=== PATIENT | female | born 1950 | race Caucasian/White ===

== ENCOUNTER 2016-08-18 09:40 | Emergency (ER) | payer OTHER ==
[~2016-08-18] VITALS: Wt 78.0 kg
[~2016-08-18 09:40] MED LIST: ASPI-664 PO; CYCL-319 PO; DORZ10DR6 BOTH EYES; GLIM4TAB PO; INSU300I SQ; LATA2.5D2 BOTH EYES; LEVO175T38 PO; LIRA0.6P SQ; LOSA50TA6 PO; NAPR-260 PO; OMEP20CA16 PO; SIMV20TA PO
[2016-08-18] MEDS ORDERED: KETOROLAC 30 MG INJ IM STA (10:14)
[2016-08-18 10:36] LABS: ADD UMIC YES; URINE BILIRUBIN (Dip) NEGATIVE (NEGATIVE); URINE BLOOD (Dip) 3+ (NEGATIVE); URINE COLOR LT. YELLOW (YELLOW); URINE GLUCOSE (Dip) >=1000 % (NEGATIVE); URINE KETONES (Dip) TRACE (NEGATIVE); URINE LEUKOCYTE ESTERASE (Dip) 2+ (NEGATIVE); URINE NITRITE (Dip) POSITIVE (NEGATIVE); URINE TOTAL PROTEIN (Dip) 2+ (NEGATIVE); URINE UROBILINOGEN (Dip) 0.2 E.U./dL (0.1-1.0)
[2016-08-18 10:52] LABS: BACTERIA,URINE MANY; SQUAMOUS EPITHELIAL CELL,UR FEW; URINE RBCS >50 /HPF (0)
[2016-08-18] MEDS ORDERED: CEFTRIAXONE 1 GM INJ IM STA (10:56)
[2016-08-18] MEDS ORDERED: LIDOCAINE 1% (MDV) 20 ML INJ SC STA (11:05)
[2016-08-18] MEDS ORDERED: CEFTRIAXONE 1 GM/50 ML (PMX) 50 ML IVPB STA (11:10)
[2016-08-18] MEDS ORDERED: SOD CHLORIDE 0.9% 1,000 ML IV STA (11:10)
[2016-08-18 11:32] LABS: ADD SCAN DIFF NO
[2016-08-18 11:44] LABS: BASOPHILS % 0.3 % (0.0-2.0); EOSINOPHILS # 0.1 10^3/ul (0.0-0.5); EOSINOPHILS % 0.5 % (0.0-7.0); HEMATOCRIT 35.1 % (37.0-47.0); LYMPHOCYTES # 1.9 10^3/ul (0.8-2.9); LYMPHOCYTES % 12.6 % (15.0-51.0); MEAN CORPUSCULAR HGB CONC 34.2 g/dl (32.0-37.0); MEAN PLATELET VOLUME 9.5 fl (7.4-10.4); MONOCYTES % 6.9 % (0.0-11.0); PLATELET COUNT 289 10^3/UL (140-415); RED BLOOD COUNT 4.28 10^6/ul (4.20-5.40); RED CELL DISTRIBUTION WIDTH 13.2 % (11.5-14.5); WHITE BLOOD COUNT 15.1 10^3/ul (4.8-10.8)
[2016-08-18 11:46] LABS: ALBUMIN 3.9 g/dl (3.3-4.9)
[2016-08-18 11:47] LABS: POTASSIUM 4.5 mmol/L (3.5-5.1)
[2016-08-18 11:49] LABS: ALBUMIN/GLOBULIN RATIO 1.25; BILIRUBIN,INDIRECT 0.4 mg/dl (0-1.1); BILIRUBIN,TOTAL 0.4 mg/dl (0.2-1.3); CREATININE 0.79 mg/dl (0.44-1.00)
[2016-08-18 11:50] LABS: CALCIUM 8.5 mg/dl (8.4-10.2)
[2016-08-18] MEDS ORDERED: PHEN-538 PO (11:58)
[2016-08-18] MEDS ORDERED: CEPH-443 PO (11:58)
[2016-08-18 12:32] VITALS: BP 129/76; PULSE 80; RESP 20; TEMP 98.4
--- NOTE | 2016-08-18 13:59 | ERD ---
ER Documentation Chief Complaint Date/Time DATE: 08/18/16 TIME: 13:56 Chief Complaint low back pain and dysuria for the past few days. burning on urination . HPI This is a 66-year-old female with a history of diabetes type 2 presenting to the emergency department complaining of painful urination and cramping suprapubic pain for the past 3 days. Patient states that she feels like she has body aches. She denies any nausea, vomiting, diarrhea. Denies any chest pain or shortness of breath. Patient states that she has had high blood sugar peer ROS All systems reviewed and are negative except as per history of present illness. Medications Home Meds Active Scripts Phenazopyridine Hcl* (Pyridium*) 200 Mg Tab, 200 MG PO TID Y for URINARY PAIN, # 10 TAB Prov:ANNA VALVERDE PA-C 08/18/16 Cephalexin* (Keflex*) 500 Mg Capsule, 500 MG PO QID for 12 Days, CAP Prov:ANNA VALVERDE PA-C 08/18/16 Naproxen* (Naprosyn*) 500 Mg Tablet, 500 MG PO BID Y for PAIN AND/OR INFLAMMATION, #30 TAB Prov:ZEKE WORLEY 12/05/15 Cyclobenzaprine Hcl* (Cyclobenzaprine Hcl*) 10 Mg Tablet, 10 MG PO TID, #15 TAB Prov:ZEKE WORLEY 12/05/15 Reported Medications Latanoprost (Latanoprost) 2.5 Ml Drops, 1 DROP BOTH EYES QHS, #1 BOTTLE 12/05/15 Dorzolamide/Timolol* (Dorzolamide/Timolol*) 10 Ml Drops, 1 DROP BOTH EYES BID, # 1 EA 12/05/15 Insulin Glargine,Hum.rec.anlog (Toutj Solostar) 300 Unit/1 Ml Insuln.pen, 0 SQ BID SLIDING SCALE 12/05/15 Liraglutide (Victoza 2-Scot) 0.6 Mg/0.1 Ml Pen.injctr, 1.2 MG SQ DAILY, SYR AT 3PM 12/05/15 Simvastatin* (Zocor*) 20 Mg Tablet, 20 MG PO QHS, #30 TAB 12/05/15 Aspirin (Low Dose Aspirin) 81 Mg Tablet.dr, 81 MG PO DAILY, #30 TAB 12/05/15 Omeprazole* (Omeprazole*) 20 Mg Capsule.dr, 20 MG PO DAILY, #30 CAP 12/05/15 Levothyroxine Sodium* (Levoxyl*) 175 Mcg Tablet, 175 MCG PO BEFORE BREAKFAST, # 30 TAB 12/05/15 Glimepiride* (Glimepiride*) 4 Mg Tablet, 4 MG PO WITH BREAKFAST DINNE, TAB 12/05/15 Losartan Potassium* (Losartan Potassium*) 50 Mg Tablet, 50 MG PO DAILY, TAB 12/05/15 Allergies Allergies: Coded Allergies: No Known Allergy (Unverified , 08/18/16) PMhx/Soc History of Surgery: Yes (BILAT EYE CATARACT SX, THYROID SX, TAHBSO ) Hx Cardiac Disorders: Yes (HTN, HYPERLIPEDEMIA) Hx Miscellaneous Medical Probl: Yes (DM, HYPOTHYROIDISM) Hx Alcohol Use: No Hx Substance Use: No Hx Tobacco Use: No Smoking Status: Never smoker Physical Exam Vitals Vital Signs Date Time Temp Pulse Resp B/P Pulse Ox O2 Delivery O2 Flow Rate FiO2 08/18/16 12:32 98.4 80 20 129/76 98 08/18/16 09:42 98.9 88 21 133/75 98 Physical Exam General: well-developed/well-nourished, in no apparent distress, non-toxic appearing HENT: NC/AT Eyes: Conjunctiva normal Neck: Supple Pulm: CTA bilaterally, normal breathing CV: Normal S1S2 GI: Soft, non-distended, normal bowel sounds, TTP on suprapubic region Back: No midline tenderness, no masses, No CVAT Ext: No clubbing, cyanosis, or edema Neuro: Alert and orientated Skin: intact, normal turgor Psych: Normal mood and mentation Result Diagram: 08/18/16 1115 08/18/16 1115 Results 24 hrs Laboratory Tests Test 08/18/16 10:25 08/18/16 11:15 Urine Color LT. YELLOW Urine Clarity SLIGHTLY CLOUDY Urine pH 6.0 Urine Specific Clarence 1.015 Urine Ketones TRACE Urine Nitrite POSITIVE Urine Bilirubin NEGATIVE Urine Urobilinogen 0.2 E.U./dL Urine Leukocyte Esterase 2+ Urine Microscopic RBC >50/HPF Urine Microscopic WBC >50/HPF Urine Squamous Epithelial Cells FEW Urine Bacteria MANY Urine Hemoglobin 3+ Urine Glucose >=1000% Urine Total Protein 2+ White Blood Count 15.110^3/ul Red Blood Count 4.2810^6/ul Hemoglobin 12.0g/dl Hematocrit 35.1% Mean Corpuscular Volume 82.0fl Mean Corpuscular Hemoglobin 28.0pg Mean Corpuscular Hemoglobin Concent 34.2g/dl Red Cell Distribution Width 13.2% Platelet Count 63441^3/UL Mean Platelet Volume 9.5fl Neutrophils % 79.0% Lymphocytes % 12.6% Monocytes % 6.9% Eosinophils % 0.5% Basophils % 0.3% Nucleated Red Blood Cells % 0.0/100WBC Neutrophils # 12.010^3/ul Lymphocytes # 1.910^3/ul Monocytes # 1.010^3/ul Eosinophils # 0.110^3/ul Basophils # 0.010^3/ul Nucleated Red Blood Cells # 0.010^3/ul Sodium Level 127mmol/L Potassium Level 4.5mmol/L Chloride Level 94mmol/L Carbon Dioxide Level 26mmol/L Anion Gap 12 Blood Urea Nitrogen 11mg/dl Creatinine 0.79mg/dl Glucose Level 298mg/dl Calcium Level 8.5mg/dl Total Bilirubin 0.4mg/dl Direct Bilirubin 0.00mg/dl Indirect Bilirubin 0.4mg/dl Aspartate Amino Transf (AST/SGOT) 21IU/L Alanine Aminotransferase (ALT/SGPT) 38IU/L Alkaline Phosphatase 84IU/L Total Protein 7.0g/dl Albumin 3.9g/dl Globulin 3.10g/dl Albumin/Globulin Ratio 1.25 Lipase 68U/L Current Medications Medications (Trade) Dose Ordered Sig/Rachel Route PRN Reason Start Time Stop Time Status Last Admin Dose Admin Ketorolac Tromethamine (Toradol) 30 mg ONCE STAT IM 08/18/16 10:14 08/18/16 10:18 DC 08/18/16 10:27 Ceftriaxone Sodium (Rocephin) 1 gm ONCE STAT IM 08/18/16 10:56 08/18/16 10:57 DC Lidocaine 20 ml 20 ml ONCE STAT SC 08/18/16 11:05 08/18/16 11:07 DC Sodium Chloride 1,000 ml @ 1,000 mls/hr Q1H STAT IV 08/18/16 11:10 08/18/16 12:09 DC 08/18/16 11:26 Ceftriaxone Sodium (Rocephin) 50 ml @ 100 mls/hr ONCE STAT IVPB 08/18/16 11:10 08/18/16 11:39 DC 08/18/16 11:27 Procedures/MDM This is a 66-year-old female with a history of diabetes type 2 presenting to the emergency department complaining of symptoms most consistent with a urinary tract infection. I have a low suspicion for nephrolithiasis, pyelonephritis, or a complicated urinary tract infection that requires admission. A urinalysis was done in the ED and as she was positive for urinary tract infection with hemoglobin. Urine culture was sent out. IV access established, Lab work was drawn. CBC did not show any evidence of significant leukocytosis or anemia. CMP did not show any evidence of renal, liver, or electrolyte abnormalities. Glucose level was 298, I have a low suspicion for DKA or hyperosmolar state lipase was normal. UA did not show any evidence of hemoglobin or urinary tract infection. Patient was given 1 g of ceftriaxone in the ED and given a prescription for Keflex for outpatient. I discussed with patient to follow-up with her primary care physician tomorrow and discussion of her hyperglycemia. I discussed the patient to return to the emergency department for any worsening sinus symptoms. Patient is hematuria stable, afebrile and appears well for discharge. She understands and agrees with this plan Departure Diagnosis: Primary Impression: UTI (urinary tract infection) Condition: Stable Patient Instructions: Understanding Urinary Tract Infections (UTIs), Diabetic Hyperglycemia Additional Instructions: Visite a nina elsi mitchell para un EXAMEN.Regrese a estas instalaciones si no se mejora heydi esperbamos o heydi le dijimos. [place] toda la medicina jono y heydi se le indic. Regrese a estas instalaciones si no se mejora heydi esperbamos o heydi le dijimos. ANNA VALVERDE PA-C Aug 18, 2016 13:59
== END 2016-08-18 12:34 | disposition home or self-care (01) ==
LOC: FTE 09:40
DX: N39.0 Urinary tract infection, site not specified (principal); E11.9 Type 2 diabetes mellitus without complications; I10 Essential (primary) hypertension; E03.9 Hypothyroidism, unspecified; Z79.82 Long term (current) use of aspirin
CPT/HCPCS: 36415; 80053; 81001; 83690; 85025; 87086; 96372; 96374; J0696; J1885; J7030; Z7502; 81003

== ENCOUNTER 2017-04-09 08:52 | Emergency (ER) | payer OTHER ==
[~2017-04-09] VITALS: Ht 157.5 cm; Wt 77.4 kg
[~2017-04-09 08:52] MED LIST changes: +CEPH-443 PO; +PHEN-538 PO
[2017-04-09 08:53] VITALS: Ht 157.5 cm; Wt 77.4 kg
[2017-04-09] MEDS ORDERED: KETOROLAC 30 MG INJ IM STA (09:10)
--- NOTE | 2017-04-09 09:21 | RADRPT ---
PROCEDURE: XR Chest. CLINICAL INDICATION: Cough TECHNIQUE: Single frontal view of the chest was obtained COMPARISON: 12/05/2015 FINDINGS: The heart does not appear to be enlarged. Tortuosity of the thoracic aorta again seen. Hypoinflation lungs and bibasilar atelectasis. There is minimal prominence of the lung interstitium likely minimal chronic changes. Small calcified granuloma again seen in the right upper lung lobe. There is no pleural effusion or pneumothorax. IMPRESSION: Hypoinflation lungs and bibasilar atelectasis. RPTAT: HJES .Elmo Russell MD, MD Date Time Electronically viewed and signed by .Elmo Russell MD, MD on 04/09/2017 09:21 .S/
[2017-04-09] MEDS ORDERED: AZIT250T94 PO (09:41)
[2017-04-09] MEDS ORDERED: BENZ100C70 PO (09:41)
[2017-04-09] MEDS ORDERED: IBUP400T22 PO (09:42)
[2017-04-09] MEDS ORDERED: GUAI-637 PO (09:42)
--- NOTE | 2017-04-09 09:50 | ERD ---
ER Documentation Chief Complaint Chief Complaint Complains of cough, sorethroat x 3 days (JOHNNY THIBODEAUX PA-C) HPI Patient is a 66-year-old female with a past medical history of diabetes, hypertension, hyperlipidemia presents to the ED for concerns of cough, generalized body aches, sore throat and tactile fevers 3 days. Patient states last night she tried her 's Tessalon Perles. Patient denies taking any antipyretics. Patient did not check her temperature with thermometer. Patient states that her cough is dry. Patient also reports throat pain and states that she lost her voice secondary to persistent coughing. Patient denies any trismus , drooling or hyperextension of her neck. Patient denies any shortness of breath or chest pain. Patient states she does have coughing spells which does cause her to occasionally have chest wall pain. Patient denies any nausea, vomiting, abdominal pain or diarrhea. Patient states she did not receive the flu vaccination this year. Patient denies any recent travel. No sick contacts. (JOHNNY THIBODEAUX PA-C) ROS All systems reviewed and are negative except as per history of present illness. (JOHNNY THIBODEAUX PA-C) Medications Home Meds Active Scripts Guaifenesin* (Robitussin*) 100 Mg/5 Ml Syrup, 100 MG PO Q6 Y for COUGH, #1 BOT Prov:JOHNNY THIBODEAUX PA-C 04/09/17 Ibuprofen* (Motrin*) 400 Mg Tab, 400 MG PO Q6, #20 TAB Prov:JOHNNY THIBODEAUX PA-C 04/09/17 Benzonatate* (Tessalon Perle*) 100 Mg Capsule, 100 MG PO Q8H Y for COUGH, #20 CAP Prov:JOHNNY THIBODEAUX PA-C 04/09/17 Azithromycin* (Zithromax*) 250 Mg Tablet, 250 MG PO .EricPACK DIRECTED, #6 TAB TAKE 500 MG (2 TABS) THE FIRST DAY THEN 250 MG (1 TAB) DAYS 2-5 Prov:JOHNNY THIBODEAUX PA-C 04/09/17 Phenazopyridine Hcl* (Pyridium*) 200 Mg Tab, 200 MG PO TID Y for URINARY PAIN, # 10 TAB Prov:ANNA VALVERDE PA-C 08/18/16 Cephalexin* (Keflex*) 500 Mg Capsule, 500 MG PO QID for 12 Days, CAP Prov:ANNA VALVERDE PA-C 08/18/16 Naproxen* (Naprosyn*) 500 Mg Tablet, 500 MG PO BID Y for PAIN AND/OR INFLAMMATION, #30 TAB Prov:ZEKE WORLEY 12/05/15 Cyclobenzaprine Hcl* (Cyclobenzaprine Hcl*) 10 Mg Tablet, 10 MG PO TID, #15 TAB Prov:ZEKE WORLEY 12/05/15 Reported Medications Latanoprost (Latanoprost) 2.5 Ml Drops, 1 DROP BOTH EYES QHS, #1 BOTTLE 12/05/15 Dorzolamide/Timolol* (Dorzolamide/Timolol*) 10 Ml Drops, 1 DROP BOTH EYES BID, # 1 EA 12/05/15 Insulin Glargine,Hum.rec.anlog (Toujeo Solostar) 300 Unit/1 Ml Insuln.pen, 0 SQ BID SLIDING SCALE 12/05/15 Liraglutide (Victoza 2-Scot) 0.6 Mg/0.1 Ml Pen.injctr, 1.2 MG SQ DAILY, SYR AT 3PM 12/05/15 Simvastatin* (Zocor*) 20 Mg Tablet, 20 MG PO QHS, #30 TAB 12/05/15 Aspirin (Low Dose Aspirin) 81 Mg Tablet.dr, 81 MG PO DAILY, #30 TAB 12/05/15 Omeprazole* (Omeprazole*) 20 Mg Capsule.dr, 20 MG PO DAILY, #30 CAP 12/05/15 Levothyroxine Sodium* (Levoxyl*) 175 Mcg Tablet, 175 MCG PO BEFORE BREAKFAST, # 30 TAB 12/05/15 Glimepiride* (Glimepiride*) 4 Mg Tablet, 4 MG PO WITH BREAKFAST DINNE, TAB 12/05/15 Losartan Potassium* (Losartan Potassium*) 50 Mg Tablet, 50 MG PO DAILY, TAB 12/05/15 Allergies Allergies: Coded Allergies: No Known Allergy (Unverified , 08/18/16) PMhx/Soc History of Surgery: Yes (BILAT EYE CATARACT SX, THYROID SX, TAHBSO ) Hx Cardiac Disorders: Yes (HTN, HYPERLIPEDEMIA) Hx Miscellaneous Medical Probl: Yes (DM, HYPOTHYROIDISM) Hx Alcohol Use: No Hx Substance Use: No Hx Tobacco Use: No Smoking Status: Never smoker (JOHNNY THIBODEAUX PA-C) Physical Exam Vitals Vital Signs Date Time Temp Pulse Resp B/P Pulse Ox O2 Delivery O2 Flow Rate FiO2 04/09/17 08:53 98.5 85 20 153/86 96 (ANITHA ANGELES MD) Physical Exam GENERAL: Well-developed, well-nourished female. Appears in no acute distress. Hoarseness in voice noted. HEAD: Normocephalic, atraumatic. No deformities or ecchymosis. EYE: Pupils equal, round, and reactive to light. EOMs intact. No conjunctival erythema. No eye discharge. ENT: External ear without any masses or tenderness. Auditory canals clear bilaterally. TM visualized bilaterally, non-erythematous, non-bulging. Nasal mucosa pink with no discharge. Oropharynx is erythematous without any tonsillar erythema or exudates. No uvula deviation. No kissing tonsils. NECK: Supple. No meningismus. Normal ROM of the neck. LUNG: Clear to auscultation bilaterally. No rhonchi, wheezing, rales or coarse breath sounds. HEART: Regular rate and rhythm. No murmurs, rubs or gallops. BACK: No midline tenderness. EXTREMITIES: Equal pulses bilaterally. No peripheral clubbing, cyanosis or edema. No unilateral leg swelling. NEUROLOGIC: Alert and oriented to person, place and time. Moving all four extremities. 5/5 strength in all extremities. Normal speech. Steady gait. SKIN: Normal color. Warm and dry. No rashes or lesions. (JOHNNY THIBODEAUX PA-C) Results 24 hrs Current Medications Medications (Trade) Dose Ordered Sig/Rachel Route PRN Reason Start Time Stop Time Status Last Admin Dose Admin Ketorolac Tromethamine (Toradol) 30 mg ONCE STAT IM 04/09/17 09:10 04/09/17 09:11 DC 04/09/17 09:22 (ANITHA ANGELES MD) Procedures/MDM ED COURSE: The patient was stable throughout ED course. I kept the patient and/or family informed of laboratory and diagnostic imaging results throughout the ED course. DIAGNOSTIC IMAGING: Read by radiologist. DIAGNOSTIC IMAGING REPORT Patient: NARESH GAYLE : 1950 Age: 66 Sex: F MR #: [id number] DOS: 04/09/17 09 Ordering MD: JOHNNY THIBODEAUX PA-C Location: [facility] Room/Bed: PROCEDURE: XR Chest. CLINICAL INDICATION: Cough TECHNIQUE: Single frontal view of the chest was obtained COMPARISON: 12/05/2015 FINDINGS: The heart does not appear to be enlarged. Tortuosity of the thoracic aorta again seen. Hypoinflation lungs and bibasilar atelectasis. There is minimal prominence of the lung interstitium likely minimal chronic changes. Small calcified granuloma again seen in the right upper lung lobe. There is no pleural effusion or pneumothorax. IMPRESSION: Hypoinflation lungs and bibasilar atelectasis. RPTAT: HJES .Elmo Russell MD, MD Date Time Electronically viewed and signed by .Elmo Russell MD, on 04/09/2017 09:21 .S/ CC: JOHNNY THIBODEAUX PA-C PROCEDURES: None. MEDICATIONS GIVEN: Toradol IM Patient tolerated medication well with no adverse reactions. MEDICAL DECISION MAKING: This is a 66-year-old female presents to the ED for concerns of a dry cough, throat pain, generalized body aches, and tactile fevers 3 days.. Vital signs were reviewed. Patient was afebrile. Patient was not hypoxic. ENT exam was normal. The exam was normal. Chest x-ray showed Hypoinflation lungs and bibasilar atelectasis. Flu swab is negative. Patient reported improvement in pain after receiving Toradol. Given these findings, the patient's presentation is most consistent with influenza-like symptoms. I will empirically treat the patient with a course of antibiotics per recommendation of my supervising physician. Low suspicion for pneumonia, meningitis, sinusitis, otitis externa, acute otitis media, strep pharyngitis, epiglottitis or peritonsillar abscess. Discussed case with my supervising physician Dr. Ya, who also examined the patient and agreed my plan. Patient was nontoxic [id number]. Patient felt improved to go home. PRESCRIPTIONS: Ibuprofen, Tessalon Perles, Z-Scot, Robitussin DISCHARGE: At this time, patient is stable for discharge and outpatient management. Supportive therapies such as OTC throat lozenges, salt water gurgles, popsicles and jello discussed. I have instructed the patient to follow-up with his/her primary care physician in 1-2 days. I have instructed the patient to promptly return to the ER for any new or worsening symptoms including increased pain, swelling, fever, nausea, vomiting, weakness or difficulty breathing. The patient and/or family expressed understanding of and agreement with this plan. All questions were answered. Home care instructions were provided. Patients blood pressure was elevated (>120/80) but appears stable without evidence of hypertensive emergency, hypertensive urgency or end-organ failure. I had discussion with the patient about the risks of hypertension. I have advised the patient to follow up with his/her primary care physician for outpatient monitoring and treatment for hypertension in 2-3 days. I have instructed the patient to return to the ER for any new or worsening symptoms including chest pain, shortness of breath, headache, blurred vision, confusion, nausea, vomiting or LOC. Disclaimer: Inadvertent spelling and grammatical errors are likely due to EHR/ dictation software use and do not reflect on the overall quality of patient care. Also, please note that the electronic time recorded on this note does not necessarily reflect the actual time of the patient encounter. (JOHNNY THIBODEAUX PA-C) This patient was seen in conjunction with Johnny MUÑOZ. I have independently interviewed and examined the patient and reviewed pertinent historical, laboratory, and other data. I have reviewed Johnny MUÑOZ note and concur fully with documented findings. In brief, 66-year-old female, with history of diabetes, presents to the emergency department complaining of progressive worsening of respiratory symptoms including cough, congestion, and subjective fever. Physical Examination: Revealed elevated blood pressure, mild respiratory rhonchi otherwise physical examination in normal limits Pertinent Data: Chest x-ray showed mild atelectasis. Assessment: Flulike symptoms, likely viral however due to patient's age and comorbidity I recommended a course of antibiotics to prevent complications. Recommendations: 1. I have discussed the results of my overview and impressions with the patient and/or appropriate family 2. Options for management were reviewed (ANITHA ANGELES MD) Departure Diagnosis: Primary Impression: Flu-like symptoms Condition: Stable Patient Instructions: Influenza (Adult) Additional Instructions: Llame al doctor MAANA y malia femi EMILY PARA DENTRO DE 1-2 ULRICH.Dgale a la secretaria que nosotros le instruimos hacer esta emily.Avise o llame si nina condicin se empeora antes de la emily. Regresa aqui si peor o no mejor. JOHNNY THIBODEAUX PA-C Apr 09, 2017 09:50 ANITHA ANGELES MD Apr 09, 2017 09:59
[2017-04-09 10:06] VITALS: BP 137/83; PULSE 83; RESP 20
== END 2017-04-09 10:14 | disposition home or self-care (01) ==
LOC: FTE 08:52
DX: R05 Cough (principal); J02.9 Acute pharyngitis, unspecified; R50.9 Fever, unspecified; E11.9 Type 2 diabetes mellitus without complications; I10 Essential (primary) hypertension; E03.9 Hypothyroidism, unspecified; Z79.84 Long term (current) use of oral hypoglycemic drugs; Z79.4 Long term (current) use of insulin; Z79.82 Long term (current) use of aspirin
CPT/HCPCS: 71010; 87400; 96372; J1885; Z7502

== ENCOUNTER 2017-08-30 18:04 | Emergency (ER) | END 2017-08-30 22:00 | disposition home or self-care (01) ==

== ENCOUNTER 2018-04-08 14:18 | Emergency (ER) | END 2018-04-08 16:38 | disposition home or self-care (01) ==

== ENCOUNTER 2019-01-14 21:35 | Emergency (ER) | payer OTHER ==
[~2019-01-14] VITALS: Ht 162.6 cm; Wt 75.6 kg
[~2019-01-14 21:35] MED LIST changes: +AMOX1TAB10 PO; -ASPI-664 PO; +ASPI81TA52 PO; +AZIT250T PO; +BENZ-6 PO; +CODE10LI PO; -CYCL-319 PO; +CYCL10TA7 PO; +GUAI-637 PO; +HYDR-4011 PO; +IBUP-1561 PO; +IBUP800T48 PO; +LOSA50TA14 PO; -LOSA50TA6 PO; -NAPR-260 PO; +NAPR-985 PO; +OMEP40CA6 PO; +PRED20TA PO
[2019-01-14 21:37] VITALS: Ht 162.6 cm; Wt 75.6 kg
[2019-01-14] MEDS ORDERED: FAMOTIDINE 20 MG TAB PO ONE (22:30)
[2019-01-14] MEDS ORDERED: GUAIFENESIN/CODEINE 5ML CUP PO ONE (22:30)
[2019-01-14] MEDS: ASPIRIN 325 MG TAB PO ONE ×3 (22:36→22:40)
[2019-01-14] MEDS ORDERED: NICARDipine HCL 30 MG CAPSULE PO ONE (23:30)
[2019-01-14 23:57] VITALS: BP 159/85; PULSE 77; RESP 17
== END 2019-01-14 23:57 | disposition home or self-care (01) ==
LOC: FTE 21:35
DX: J02.9 Acute pharyngitis, unspecified (principal); I10 Essential (primary) hypertension; E11.9 Type 2 diabetes mellitus without complications; E03.9 Hypothyroidism, unspecified; J40 Bronchitis, not specified as acute or chronic; Z79.4 Long term (current) use of insulin; Z79.82 Long term (current) use of aspirin
CPT/HCPCS: 93005; Z7610